=== PATIENT | female | born 1990 | race African-American/Black ===

== ENCOUNTER 2020-03-16 20:05 | Inpatient (IN) | payer MEDICAID ==
[~2020-03-16] VITALS: Ht 172.7 cm; Wt 79.0 kg
[2020-03-16] MEDS ORDERED: SODIUM CHLORIDE 0.9% 1,000 ML IV ONE (20:19)
[2020-03-16] MEDS ORDERED: ACETAMINOPHEN 325MG TABLET PO PRN (20:30)
[2020-03-16 21:07] LABS: HEMATOCRIT. 33.1 % (36.0-48.0); HEMOGLOBIN. 11.2 g/dL (12.0-16.0); MEAN CORPUSCULAR HEMOGLOBIN 29.3 pg (28.0-32.0); MEAN CORPUSCULAR VOLUME 86.8 fL (81.0-99.0); MEAN PLATELET VOLUME 8.3 fl (7.4-10.4); PLATELET 251 x1000/uL (130-400); RED BLOOD CELL COUNT 3.81 mill/uL (4.2-5.4); RED CELL DISTRIBUTION WIDTH 14.9 % (11.6-14.6)
[2020-03-16 21:14] LABS: CHLORIDE 101 mEq/L (98-107)
[2020-03-16 21:16] LABS: INR 0.9; PROTHROMBIN TIME 9.8 sec (9.6-11.0)
[2020-03-16 21:22] LABS: PLATELET ESTIMATE NORMAL
[2020-03-16 21:24] LABS: *BARBITURATES SCREEN URINE NEGATIVE (NEGATIVE); CANNABINOID URINE SCREEN NEGATIVE (NEGATIVE); PHENCYCLIDINE URINE SCREEN NEGATIVE (NEGATIVE)
[2020-03-16 21:25] LABS: *AMPHETAMINES SCREEN URINE NEGATIVE (NEGATIVE); *BENZODIAZEPINES SCREEN URINE NEGATIVE (NEGATIVE); *COCAINE SCREEN URINE NEGATIVE (NEGATIVE); METHADONE URINE SCREEN NEGATIVE (NEGATIVE); OPIATES URINE SCREEN NEGATIVE (NEGATIVE)
[2020-03-16 21:36] LABS: CLARITY URINE CLEAR (CLEAR); COLOR URINE YELLOW (YELLOW); KETONES URINE NEGATIVE (NEGATIVE); LEUKOCYTE ESTERASE URINE NEGATIVE (NEGATIVE); NITRITE URINE NEGATIVE (NEGATIVE); OCCULT BLOOD URINE NEGATIVE (NEGATIVE); PROTEIN URINE NEGATIVE (NEGATIVE); SPECIFIC GRAVITY URINE 1.004 (1.005-1.030); UROBILINOGEN URINE 0.2 E.U./dL (0.2-1.0)
[2020-03-16 21:40] LABS: B-HCG QUANTITATIVE 21849 mIU/mL (<3)
[2020-03-17] MEDS ORDERED: DEXT 5%/LR + PITOCIN 20UNITS/L 1,000 ML IV SCH ×2 (01:25→03:45)
[2020-03-17] MEDS ORDERED: BUTORPHANOL TARTRATE 2 MG/ML VIAL IV SCH (01:29)
[2020-03-17] MEDS ORDERED: METHYLERGONOVINE MALEATE 0.2 MG/ML IM PRN ×3 (01:30→04:00)
[2020-03-17] MEDS ORDERED: LIDOCAINE HCL 1% 20ML VIAL (Pyxis) INJ INFIL SCH (01:30)
[2020-03-17] MEDS ORDERED: NALOXONE HCL 0.4 MG/ML 1ML VIAL IM PRN (01:30)
[2020-03-17] MEDS: LACTATED RINGERS 1,000 ML IV SCH ×2 (02:00→05:10)
[2020-03-17 03:28] LABS: HEPATITIS B SURFACE ANTIGEN NEGATIVE
[2020-03-17] MEDS ORDERED: IBUPROFEN 800MG TABLET PO PRN (03:45)
[2020-03-17] MEDS ORDERED: HEMORRHOIDAL SUPP PR PRN (03:45)
[2020-03-17] MEDS ORDERED: BISACODYL 10MG SUPP PR PRN (03:45)
[2020-03-17] MEDS ORDERED: ACETAMINOPHEN WITH CODEINE 300/30MG TABLET PO PRN (03:45)
[2020-03-17] MEDS ORDERED: GLYCERIN/WITCH HAZEL LEAF MEDICATED PAD TOP PRN (03:45)
[2020-03-17 06:40] VITALS: BP 124/68
[2020-03-17 07:45] VITALS: BP 124/74
[2020-03-17] MEDS ORDERED: MAGNESIUM/ALUMINUM HYDROXIDE/SIMETHICONE 30ML UDC PO SCH (09:00)
[2020-03-17] MEDS ORDERED: PRENATAL VIT/FE FUMARATE/FA TABLET PO SCH (09:00)
[2020-03-17] MEDS ORDERED: SIMETHICONE 80MG TABLET CHEW PO SCH (09:00)
[2020-03-17] MEDS: IBUPROFEN 400MG TABLET PO PRN ×2 (12:01→17:46)
[2020-03-17 14:00] VITALS: BP 111/62
[2020-03-17 20:00] VITALS: BP 104/58
[2020-03-17] MEDS ORDERED: DOCUSATE SODIUM 100MG CAPSULE PO SCH (21:00)
[2020-03-18 05:00] VITALS: BP 105/60
[2020-03-18] MEDS ORDERED: FERROUS SULFATE 325MG TABLET PO SCH (09:00)
[2020-03-18] MEDS: IBUPROFEN 400MG TABLET PO PRN (09:13)
[2020-03-18 09:30] VITALS: BP 111/65
[2020-03-18 09:52] LABS: BASOPHILS % 0.1 % (0.0-2.0); EOSINOPHILS % 0.1 % (0.0-5.0); HEMATOCRIT. 28.3 % (36.0-48.0); HEMOGLOBIN. 9.6 g/dL (12.0-16.0); LYMPHOCYTES % 8.2 % (20.0-50.0); MEAN CORPUSCULAR HEMOGLOBIN 29.6 pg (28.0-32.0); MEAN CORPUSCULAR VOLUME 87.1 fL (81.0-99.0); MEAN PLATELET VOLUME 8.3 fl (7.4-10.4); NEUTROPHILS % 86.6 % (40.0-76.0); PLATELET 180 x1000/uL (130-400); RED BLOOD CELL COUNT 3.25 mill/uL (4.2-5.4); RED CELL DISTRIBUTION WIDTH 15.7 % (11.6-14.6)
== END 2020-03-18 13:00 | disposition home or self-care (01) | DRG 560 ==
LOC: ER 20:05 → EDBEDREQ 03-17 00:06 → EDBEDREQTM 03-17 00:06 → OBSVTOIN 03-17 00:14 → EDBD 03-17 00:14 → 8 EST LDRP 03-17 00:14 → 8 EST A/PP 03-17 06:40
PROVIDERS: ADMIT Obstetrics & Gynecology; ATTEND Obstetrics & Gynecology
PROC: 10E0XZZ Delivery of Products of Conception, External Approach (ICD-10-PCS; principal; 2020-03-17)
DX: O03.9 Complete or unspecified spontaneous abortion without complication (principal); Z37.1 Single stillbirth; Z3A.19 19 weeks gestation of pregnancy
CPT/HCPCS: 36415; 76705; 76815; 80053; 80305; 81003; 84702; 85025; 86592; 86703; 86762; 86850; 86900; 87340; 88307; 99281; G0378; J0595; J2210; J2590; J7030; J7120